=== PATIENT | female | born 1990 | race African-American/Black ===

== ENCOUNTER 2018-03-02 06:56 | Emergency (ER) | payer BC, OTHER ==
[~2018-03-02] VITALS: Ht 172.7 cm; Wt 59.0 kg
[2018-03-02 09:09] VITALS: BP 116/59
[2018-03-02] MEDS ORDERED: KETOROLAC TROMETH 60MG/2ML VIAL IM ONE (09:30)
[2018-03-02] MEDS ORDERED: METHOCARBAMOL 500 MG TAB PO ONE (09:30)
== END 2018-03-02 10:30 | disposition home or self-care (01) ==
LOC: ER 06:56 → EDBD 06:56 → ER 10:30
DX: M25.561 Pain in right knee (principal); R51 Headache; Z88.0 Allergy status to penicillin; V43.52XA Car driver injured in collision with other type car in traffic accident, initial encounter; Y93.89 Activity, other specified; Y99.8 Other external cause status; Y92.410 Unspecified street and highway as the place of occurrence of the external cause
CPT/HCPCS: 70450; 73564; 81025; 96372; 99285; J1885